=== PATIENT | male | born 1985 | race Caucasian/White ===

== ENCOUNTER 2021-05-16 18:20 | Emergency (ER) | payer BC ==
[2021-05-16 20:03] LABS: HEMOGLOBIN 14.3 gm/dl (14.0-17.5); RED BLOOD COUNT 4.98 M/UL (4.20-5.50)
[2021-05-16 20:19] LABS: BUN/CREATININE RATIO 24 (0-10)
[2021-05-16] MEDS ORDERED: HYDROCODON-ACE1 EAC4 PO (22:24)
== END 2021-05-16 22:50 | disposition home or self-care (01) ==
LOC: ER1 18:20
PROVIDERS: Physician Assistant
DX: K42.9 Umbilical hernia without obstruction or gangrene (principal)
CPT/HCPCS: 80053; 83690; 85025; 99284; Q9967

== ENCOUNTER → 2021-06-11 | Day surgery (SDC) | payer BC ==
[~2021-06-11] MED LIST: COLACE100 MG PO; HYDROCODON-ACE1 EAC2 PO; HYDROCODON-ACE1 EAC4 PO
== END | disposition home or self-care (01) ==
LOC: OR 08:25
DX: K42.0 Umbilical hernia with obstruction, without gangrene (principal); I10 Essential (primary) hypertension; Z20.822 Contact with and (suspected) exposure to COVID-19
CPT/HCPCS: 82962; C1713; C1781; J0690; J1170; J2250; J7030; J7120